=== PATIENT | female | born 1955 | race Caucasian/White ===

== ENCOUNTER 2017-01-22 18:32 | Emergency (ER) | payer OTHER ==
[~2017-01-22] VITALS: Ht 157.5 cm; Wt 65.1 kg
[2017-01-22 18:44] VITALS: TEMP 36.9; Ht 157.5 cm; Wt 65.1 kg
[2017-01-22] MEDS ORDERED: ESOM20CA PO (19:18)
[2017-01-22] MEDS ORDERED: MAGN400T5 PO (19:18)
[2017-01-22] MEDS ORDERED: CITA40TA12 PO (19:18)
[2017-01-22] MEDS ORDERED: TOPI100T20 PO (19:18)
[2017-01-22] MEDS ORDERED: METR-162 PO (19:18)
[2017-01-22] MEDS ORDERED: POTA1POW PO (19:18)
[2017-01-22] MEDS ORDERED: LISI-787 PO (19:18)
[2017-01-22] MEDS ORDERED: SIMV40TA2 PO (19:18)
[2017-01-22] MEDS ORDERED: POTA-65 PO (19:19)
[2017-01-22] MEDS ORDERED: MoRPHine SULFATE 10 MG/ML CARP/VIAL IV STA ×2 (19:28→21:46)
[2017-01-22] MEDS ORDERED: SODIUM CHLORIDE 0.9% 1000ML 1,000 ML IV STA (19:28)
[2017-01-22] MEDS ORDERED: ONDANSETRON INJ 2 MG/ML 2 ML VIAL IV STA ×2 (19:28→21:46)
[2017-01-22] MEDS ORDERED: OPTIRAY 320 IV PRN (19:45)
[2017-01-22] MEDS ORDERED: MoRPHine SULFATE 2 MG/ML CARP ONE (19:49)
[2017-01-22] MEDS ORDERED: MoRPHine SULFATE 4 MG/ML 1 ML CARP\\VIAL ONE (19:49)
[2017-01-22 20:33] LABS: BASO % 0.5 %; BASO ABS # 0.04 K/uL (0-0.2); COMPLETE YES; EOS % 1.4 %; HEMATOCRIT 39.2 % (37-47); IG% 0.4 %; LYMPH % 33.9 %; LYMPH ABS # 2.82 K/uL (1.2-3.4); MEAN CELL VOLUME 94.9 fL (80-100); MEAN CORPUSCULAR HEMOGLOBIN 31.5 pg (25-34); MEAN CORPUSCULAR HGB CONC 33.2 g/dl (32-36); MEAN PLATELET VOLUME 10.8 fL (7.4-10.4); MONO % 8.1 %; NEUT % 55.7 %; PLATELET COUNT 285 K/uL (130-400); RED BLOOD COUNT 4.13 M/uL (4.2-5.4); WHITE BLOOD COUNT 8.32 K/uL (4.8-10.8)
[2017-01-22 20:37] LABS: URINE APPEARANCE CLEAR (CLEAR); URINE BILIRUBIN NEG (NEG); URINE COLOR YELLOW; URINE NITRITE NEG (NEG); URINE SPECIFIC GRAVITY 1.014 (1.000-1.030); UROBILINOGEN NEG (NEG)
[2017-01-22 20:40] LABS: MANUAL MICROSCOPIC REQUIRED? NO; REVIEW REQ? NO
[2017-01-22 20:53] LABS: ALT/SGPT 21 U/L (12-78); BLOOD UREA NITROGEN 12 mg/dl (7-18); BUN/CREATININE RATIO 10.5 (10-20); CALCIUM 8.4 mg/dl (8.5-10.1); CARBON DIOXIDE 25 mmol/L (21-32); CHLORIDE 109 mmol/L (98-107); GLUCOSE 128 mg/dl (70-99); SODIUM 141 mmol/L (136-145)
[2017-01-22 20:56] LABS: ALKALINE PHOSPHATASE 84 U/L (45-117); AST/SGOT 14 U/L (15-37)
--- NOTE | 2017-01-22 23:02 | DIAGNOSTIC IMAGING REPORT ---
CT OF THE ABDOMEN AND PELVIS WITH CONTRAST CLINICAL HISTORY: Lower abdominal pain. History of C. difficile. COMPARISON STUDY: None. TECHNIQUE: Following IV administration of 117 mL of Optiray-320, axial images of the abdomen and pelvis were obtained from the lung bases to the proximal femurs. Images were reviewed in the axial, sagittal, and coronal planes. IV contrast was administered without complication. Oral contrast was administered. CT DOSE: 331.25 mGy.cm FINDINGS: Liver morphology is normal. A 7 mm subcapsular hypodense right hepatic lobe lesion is too small to characterize but is likely benign. There is no biliary ductal dilatation status post cholecystectomy. There is no pancreatic ductal dilatation or peripancreatic infiltration. The spleen, adrenal glands and kidneys are normal. There is no hydronephrosis. There is a small fat-containing umbilical hernia. Note is made of sigmoid diverticulosis without evidence for acute diverticulitis. The appendix is not visualized. The uterus is not visualized. The sensitivity for detection of mucosal lesions is significantly diminished given CT technique. No definite bowel wall thickening is noted. There may be mild wall thickening of the descending colon and sigmoid colon with hyperemia. There is no abdominal or pelvic lymphadenopathy. No suspicious osseous lesions are present. IMPRESSION: 1. Equivocal hyperemia of the left colon. This is likely within normal limits however a mild colitis could have this appearance. No bowel obstruction. Decreased sensitivity for detection of mucosal lesions given CT technique. 2. Sigmoid diverticulosis without evidence for acute diverticulitis. Electronically signed by: Gerry Toribio M.D. 01/22/2017 11:00 PM Dictated Date/Time: 01/22/2017 10:51 PM
[2017-01-22] MEDS ORDERED: HYDR-5688 PO (23:21)
[2017-01-22] MEDS ORDERED: NORCO 5/325MG HOME PACK PO ONE (23:30)
[2017-01-22 23:55] VITALS: BP 95/51; PULSE 62; O2SAT 94
--- NOTE | 2017-01-23 23:22 | EMERGENCY ROOM VISIT NOTE ---
ED Visit Note First contact with patient: 18:59 Chief Complaint: Abdominal pain. History of Present Illness: Ms. Amaya is a 61 year-old white female who ambulates into the ED complaining of generalized abdominal pain. Historically patient reports history of C. difficile for the last 4 weeks. She is on her second course of Flagyl and has not noticed any improvement of her diarrhea. Patient reports a ongoing diffuse abdominal pain that started approximately 4 weeks ago. Since that time the pain has been constant but she feels her pain has gradually increased in intensity especially over the last 48 hours. The pain is currently described as sharp and cramping. She rates her discomfort 8/ 10. The pain is nonradiating. The pain worsens with eating and diarrhea. She has not identified any alleviating factors related to the pain. She has used [id number] medications without relief of her discomfort. Associated with the pain there has been nausea but no vomiting, chills but no fever, ongoing diarrhea, decreased appetite. Patient denies sweats, skin eruptions, skin color changes, upper respiratory tract symptoms, shortness of breath, chest pain, constipation, rectal bleeding, black/tarry stools, urinary symptoms, hematuria, vaginal bleeding, vaginal discharge, back/flank pain. Review of Systems: As noted above in history of present illness. All body systems were reviewed and found to be negative as noted above. Past Medical History: As previously noted, GERD, hypertension, dyslipidemia, anxiety. Current Medications: Medications Dose Route/Sig Max Daily Dose Days Date Category Dose Instructions Potassium Chloride ER (Potassium Chloride) 20 Meq Tab 1 Tab PO TID 01/22/17 Reported Nexium (Esomeprazole Magnesium) 20 Mg Capcr Unknown Dose PO DAILY 01/22/17 Reported Zestoretic 20MG/12.5MG (HCTZ/Lisinopril) Tab 1 Tab PO DAILY 01/22/17 Reported Zocor (Simvastatin) 40 Mg Tab 40 Mg PO DAILY 01/22/17 Reported Celexa (Citalopram Hydrobromide) 40 Mg Tab 40 Mg PO DAILY 01/22/17 Reported Topamax (Topiramate) 100 Mg Tab 100 Mg PO BID 01/22/17 Reported Flagyl (Metronidazole) 500 Mg Tab 500 Mg PO TID 10 01/22/17 Reported Mag-Ox (Magnesium Oxide) 400 Mg Tab 400 Mg PO DAILY 01/22/17 Reported Allergies to Medications: Patient denies. Social History: Patient is not currently employed; she feels safe in her home environment; she admits to tobacco use. Physical Examination: Vital Signs: Date Time Temp Pulse Resp B/P Pulse Ox O2 Delivery O2 Flow Rate FiO2 01/22/17 23:55 62 18 95/51 94 Room Air 01/22/17 22:31 66 16 102/55 99 Room Air 01/22/17 20:15 69 18 125/63 100 Room Air 01/22/17 18:44 36.9 88 18 118/77 98 Room Air GENERAL: 61-year-old female in mild to moderate distress due to pain, nontoxic- appearing, afebrile and hemodynamically stable. NEUROLOGICAL: Awake, alert and oriented to person, place and time. Answering questions appropriately and following commands. Normal gait. Good hand eye coordination. SKIN: Warm, dry and pink. No soft tissue eruptions or trauma noted. HEENT: Atraumatic and normocephalic. PERRL. Sclera white and conjunctiva pink. Oral cavity moist and pink. Pharynx is nonerythematous or edematous. Speech normal. No lymphadenopathy. Trachea midline. No jugular venous distention. BACK: No tenderness over the bony spine. No CVA tenderness. THORAX: Lungs sounds are clear to auscultation and equal bilaterally with symmetrical chest wall. No wheezing, rales or rhonchi. No crepitus, tenderness , subcutaneous air or deformities noted. HEART: Regular rate and rhythm. No gallops, rubs or murmurs are appreciated. ABDOMEN: Flat, soft with diffuse tenderness in all quadrants. Mild guarding in all quadrants. Decreased bowel sounds in all quadrants. No guarding, rigidity or organomegaly. EXTREMITIES: Moves all extremities well on command and with purpose. All distal neurovascular statuses are intact and equal bilaterally. ED Course: Patient is assessed as noted above. Laboratory Testing: Test 01/22/17 19:56 01/22/17 20:15 Range/Units White Blood Count 8.32 4.8-10.8 K/uL Red Blood Count 4.13 4.2-5.4 M/uL Hemoglobin 13.0 12.0-16.0 g/dL Hematocrit 39.2 37-47 % Mean Corpuscular Volume 94.9 80-100 fL Mean Corpuscular Hemoglobin 31.5 25-34 pg Mean Corpuscular Hemoglobin Concent 33.2 32-36 g/dl Platelet Count 285 130-400 K/uL Mean Platelet Volume 10.8 7.4-10.4 fL Neutrophils (%) (Auto) 55.7 % Lymphocytes (%) (Auto) 33.9 % Monocytes (%) (Auto) 8.1 % Eosinophils (%) (Auto) 1.4 % Basophils (%) (Auto) 0.5 % Neutrophils # (Auto) 4.64 1.4-6.5 K/uL Lymphocytes # (Auto) 2.82 1.2-3.4 K/uL Monocytes # (Auto) 0.67 0.11-0.59 K/uL Eosinophils # (Auto) 0.12 0-0.5 K/uL Basophils # (Auto) 0.04 0-0.2 K/uL RDW Standard Deviation 45.6 36.4-46.3 fL RDW Coefficient of Variation 13.2 11.5-14.5 % Immature Granulocyte % (Auto) 0.4 % Immature Granulocyte # (Auto) 0.03 0.00-0.02 K/uL Sodium Level 141 136-145 mmol/L Potassium Level 3.0 3.5-5.1 mmol/L Chloride Level 109 98-107 mmol/L Carbon Dioxide Level 25 21-32 mmol/L Anion Gap 7.0 3-11 mmol/L Blood Urea Nitrogen 12 7-18 mg/dl Creatinine 1.10 0.60-1.20 mg/dl Est Creatinine Clear Calc Drug Dose 47.0 ml/min Estimated GFR () 62.3 Estimated GFR (Non- 53.8 BUN/Creatinine Ratio 10.5 10-20 Random Glucose 128 70-99 mg/dl Calcium Level 8.4 8.5-10.1 mg/dl Total Bilirubin 0.2 0.2-1 mg/dl Direct Bilirubin < 0.1 0-0.2 mg/dl Aspartate Amino Transf (AST/SGOT) 14 15-37 U/L Alanine Aminotransferase (ALT/SGPT) 21 12-78 U/L Alkaline Phosphatase 84 45-117 U/L Total Protein 6.7 6.4-8.2 gm/dl Albumin 3.9 3.4-5.0 gm/dl Lipase 274 73-393 U/L Urine Color YELLOW Urine Appearance CLEAR CLEAR Urine pH 5.0 4.5-7.5 Urine Specific Dendron 1.014 1.000-1.030 Urine Protein NEG NEG Urine Glucose (UA) NEG NEG Urine Ketones NEG NEG Urine Occult Blood TRACE NEG Urine Nitrite NEG NEG Urine Bilirubin NEG NEG Urine Urobilinogen NEG NEG Urine Leukocyte Esterase TRACE NEG Urine WBC (Auto) 1-5 0-5 /hpf Urine RBC (Auto) 0-4 0-4 /hpf Urine Hyaline Casts (Auto) 1-5 0-5 /lpf Urine Epithelial Cells (Auto) 10-20 0-5 /lpf Urine Bacteria (Auto) NEG NEG Contrast Abdominal/Pelvic CT: Was reviewed by myself and read by the radiologist shows equivocal hyperemia of the left colon with mild colitis but no bowel obstruction. Sigmoid diverticulosis without evidence of diverticulitis. Patient was hydrated with normal saline and she received a total of 12 mg of morphine IV and a total of 8 mg of Zofran IV. Patient was reassessed multiple times during her stay in the emergency department. Patient's case was reviewed with Dr. Randhawa; we agreed on diagnostic approach, treatment, disposition and plan. Patient was educated about tonight's findings and instructed on her treatment plan; she verbalizes understanding and agreement with this plan. Clinical Impression: Colitis due to C. difficile. Decision-Making: Initially my differential diagnosis I considered colitis, diverticulitis, bowel obstruction, perforated viscus, mesenteric ischemia, acute appendicitis and other causes. Disposition: Patient discharged home in stable condition accompanied by family member; prior to departure she was reassessed and subjectively reported she was feeling better and rated her overall discomfort 2/10. Plan: Patient was encouraged to continue her antibiotic therapy as prescribed. Patient was placed on a sliding pain scale of acetaminophen and Ambler; she was educated on precautions of narcotics use. Patient was encouraged to follow-up with personal physician for recheck and possible referral to gastroenterology Patient was encouraged return the ED for worsening symptoms, worsening diarrhea , bloody diarrhea, fevers, or any new/concerning symptoms.
== END 2017-01-22 23:59 | disposition still patient (30) ==
LOC: C.EDB 18:35
DX: A04.7 Enterocolitis due to Clostridium difficile (principal); K21.9 Gastro-esophageal reflux disease without esophagitis; I10 Essential (primary) hypertension; E78.5 Hyperlipidemia, unspecified; F41.9 Anxiety disorder, unspecified; F17.200 Nicotine dependence, unspecified, uncomplicated; K57.30 Diverticulosis of large intestine without perforation or abscess without bleeding